=== PATIENT | female | born 1960 | race Caucasian/White ===

== ENCOUNTER 2017-04-08 18:26 | Emergency (ER) | payer OTHER ==
[~2017-04-08] VITALS: Ht 162.6 cm; Wt 68.0 kg
[~2017-04-08 18:26] MED LIST: BIOT1TAB2 PO; CHOL400T PO; LOSA1TAB PO
[2017-04-08 18:31] VITALS: TEMP 36.4; Ht 162.6 cm; Wt 68.0 kg
[2017-04-08] MEDS ORDERED: CHOL1TAB12 PO (18:56)
[2017-04-08] MEDS ORDERED: XNX25 PO (18:56)
[2017-04-08] MEDS ORDERED: ANT25 PO (18:56)
[2017-04-08] MEDS ORDERED: BIOT1CAP3 PO (18:56)
--- NOTE | 2017-04-08 19:25 | DIAGNOSTIC IMAGING REPORT ---
LEFT KNEE 3 VIEWS CLINICAL HISTORY: Fall with left knee pain. FINDINGS: AP, crosstable lateral, and sunrise views of the left knee are compared to study dated 07/18/2012. The skeletal structures are osteopenic. No fracture is seen. There is mild tricompartmental degenerative joint space narrowing, greatest at the patellofemoral articulation. There are tiny marginal osteophytes and patellar enthesophytes. There is mild degenerative beaking of the tibial spine. No significant joint effusion is seen. Mild prepatellar soft tissue swelling is observed. IMPRESSION: 1. Mild prepatellar soft tissue swelling with no radiographic evidence of left knee fracture. 2. Osteopenia and mild arthritic change as above. Electronically signed by: Isaak Chow M.D. 04/08/2017 7:24 PM Dictated Date/Time: 04/08/2017 7:23 PM
[2017-04-08] MEDS ORDERED: MULT-506 PO (19:47)
--- NOTE | 2017-04-08 19:48 | EMERGENCY ROOM VISIT NOTE ---
ED Visit Note First contact with patient: 18:49 CHIEF COMPLAINT: Left knee pain HISTORY OF PRESENT ILLNESS: This 56-year-old female patient presents to the emergency department approximately one hour after sustaining an injury to the left knee while at work. 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 She tripped over some cords an attempt to catch herself, however she hit her left knee on the wall and landed on her buttocks. She was given an ice pack by her coworkers prior to arrival. Patient did not take any medications for the discomfort. The patient denies any other injuries besides their knee. The patient does complain of swelling and bruising. There is pain anteriorly, right over the kneecap, which patient describes as burning. They rate the pain as 3-4/10. The patient states they are able to walk on it. No numbness or tingling. No previous injuries to this knee. No ankle, foot or hip pain. REVIEW OF SYSTEMS: A 6 system review of systems was completed with positives and pertinent negatives listed in the HPI. ALLERGIES: Penicillin, sulfa MEDICATIONS: None PMH: None SOCIAL HISTORY: Patient lives locally with her family. She denies tobacco or drug use. She does report occasional alcohol use, none today. PHYSICAL EXAM: Vital Signs: Reviewed Nurse's notes, vital signs stable. GENERAL : 56-year-old female patient presents to wheelchair, no acute distress, but appears in pain, well-developed, well-nourished. MENTAL STATUS: Alert, oriented to person place and time, and cooperative. MUSCULOSKELETAL: The left knee is swollen. There is no ecchymosis. There is no joint effusion present. The patient is tender anteriorly to palpation. There is no joint line tenderness. The patella does subluxate on exam. Range of motion is normal. Strength of the quads and hamstrings is 5/5. Juanis's is negative. Yohana's and Anterior Drawer tests are negative. There Is no discomfort with varus and valgus stressing. The foot and toes are warm and well-perfused. Dorsalis pedis pulse 2+. Sensation to pain and light touch is intact. Capillary refill less than 2 seconds. EMERGENCY DEPARTMENT COURSE: I examined the patient. Patient declines pain medication. X-rays of the left knee were reviewed by myself and read by radiology and reveal IMPRESSION: 1. Mild prepatellar soft tissue swelling with no radiographic evidence of left knee fracture. 2. Osteopenia and mild arthritic changes. The patient declines crutches or a splint including the immobilizer. The patient was discharged home in good condition. DIAGNOSIS: Left knee contusion DIFFERENTIAL DIAGNOSIS: Fracture, soft tissue injury, edema, effusion, sprain or strain. DISCHARGE INSTRUCTIONS: Ice and elevate knee for swelling and pain. Wear knee immobilizer when up and about. Use crutches - minimal weight on foot. Ibuprofen 600 mg and Tylenol 1000 mg every 6 hrs for pain. You may take 1 tablet every 6 hrs for additional pain relief. Follow-up with Orthopedics for further evaluation and treatment - call for appointment if needed. Follow up with your family doctor or orthopedics if not improving in 5-7 days. Problem List Medical Problems: (1) Heart murmur Status: Chronic Current/Historical Medications Scheduled Biotin (Biotin), 5,000 MCG PO DAILY Cholecalciferol (Vitamin D3), 3,000 INTER.UNIT PO DAILY Multivitamin (Multivitamin), 1 TAB PO QAM Scheduled PRN Alprazolam (Alprazolam), 0.25 MG PO TID PRN for Anxiety Meclizine HCl (Meclizine HCl), 25 MG PO Q8 PRN for Dizziness or Vertigo Allergies Coded Allergies: Sulfa Antibiotics (Verified Allergy, Intermediate, Hives, 04/08/17) Penicillins (Verified Allergy, Mild, Hives, 08/13/15) Vital Signs Date Time Temp Pulse Resp B/P (MAP) Pulse Ox O2 Delivery O2 Flow Rate FiO2 04/08/17 19:56 71 16 122/78 98 04/08/17 18:31 36.4 68 18 143/85 100 Room Air Departure Information Impression Primary Impression: Contusion of left knee Additional Impression: Fall Dispostion Home / Self-Care Condition GOOD Referrals Jason Neal M.D. (PCP) Patient Instructions [facility] Additional Instructions ORTHOPEDIC INSTRUCTIONS: Ibuprofen(Motrin, Advil) may be used for fever or pain. Use 600mg every six hours as needed. Take with food. Avoid using more than 2400mg in a 24 hour period. Do not use 2400mg per day for more than three consecutive days without physician direction. Prolonged inappropriate use can lead to stomach upset or ulcers. (AND/OR) Acetaminophen(Tylenol) may be used for fever or pain. Use 1000mg every six hours as needed. Avoid using more than 4000mg in a 24 hour period. Ice compresses for 20 minutes at a time four times daily for 2-3 days. Rest and elevate your injury. Consider compression in the form of an Karri wrap or compression sleeve for inflammation. Return to the ER immediately for any numbness, tingling, severe pain, extreme swelling in the extremity or as needed. Follow-up with your primary care physician in 2 to 3 days for a recheck of your current condition. Problem Qualifiers Primary Impression: Contusion of left knee Encounter type: initial encounter Qualified Codes: S80.02XA - Contusion of left knee, initial encounter Additional Impression: Fall Encounter type: initial encounter Qualified Codes: W19.XXXA - Unspecified fall, initial encounter
[2017-04-08 19:56] VITALS: BP 122/78; PULSE 71; O2SAT 98
== END 2017-04-08 19:57 | disposition home or self-care (01) ==
LOC: C.EDB 18:26 → C.EDD 19:57
DX: S80.02XA Contusion of left knee, initial encounter (principal); W19.XXXA Unspecified fall, initial encounter; R00.9 Unspecified abnormalities of heart beat

== ENCOUNTER → 2017-06-13 | Outpatient (CLI) | payer OTHER ==
[~2017-06-13] MED LIST changes: +ANT25 PO; +BIOT1CAP3 PO; -BIOT1TAB2 PO; +CHOL1TAB12 PO; -CHOL400T PO; -LOSA1TAB PO; +MULT-506 PO; +XNX25 PO
[2017-06-13 09:37] LABS: BASO % 0.6 %; BASO ABS # 0.03 K/uL (0-0.2); COMPLETE YES; EOS % 5.4 %; HEMATOCRIT 38.8 % (37-47); LYMPH % 41.8 %; LYMPH ABS # 2.02 K/uL (1.2-3.4); MEAN CELL VOLUME 87.6 fL (80-100); MEAN CORPUSCULAR HEMOGLOBIN 30.7 pg (25-34); MEAN CORPUSCULAR HGB CONC 35.1 g/dl (32-36); MEAN PLATELET VOLUME 10.7 fL (7.4-10.4); MONO % 8.5 %; NEUT % 43.7 %; PLATELET COUNT 267 K/uL (130-400); RED BLOOD COUNT 4.43 M/uL (4.2-5.4); WHITE BLOOD COUNT 4.83 K/uL (4.8-10.8)
[2017-06-13 10:08] LABS: ALT/SGPT 23 U/L (12-78); BLOOD UREA NITROGEN 12 mg/dl (7-18); BUN/CREATININE RATIO 17.1 (10-20); CARBON DIOXIDE 30 mmol/L (21-32); CHLORIDE 107 mmol/L (98-107); CHOLESTEROL 190 mg/dl (0-200); CREATININE 0.72 mg/dl (0.60-1.20); GLUCOSE 100 mg/dl (70-99); MAGNESIUM 2.2 mg/dl (1.8-2.4); POTASSIUM 3.9 mmol/L (3.5-5.1); SODIUM 142 mmol/L (136-145)
[2017-06-13 10:16] LABS: ALB/GLOB RATIO 1.2 (0.9-2); ALKALINE PHOSPHATASE 82 U/L (45-117); AST/SGOT 21 U/L (15-37); CHOLESTEROL/HDL RATIO 3.5; HDL CHOLESTEROL 55 mg/dl; LDL CHOLESTEROL CALCULATED 119 mg/dl; TRIGLYCERIDES 82 mg/dl (0-150); VERY LOW DENSITY LIPOPROT CALC 16 mg/dl
== END | disposition home or self-care (01) ==
LOC: C.LAB 08:55
PROVIDERS: ATTEND Physician Assistant
DX: R25.2 Cramp and spasm (principal); I10 Essential (primary) hypertension; Z13.220 Encounter for screening for lipoid disorders